=== PATIENT | female | born 1995 | race African-American/Black ===

== ENCOUNTER 2018-11-30 00:08 | Emergency (ER) | payer MEDICAID ==
[~2018-11-30] VITALS: Ht 160 cm; Wt 82.0 kg
[2018-11-30 00:19] VITALS: BP 111/69
== END 2018-11-30 02:30 | disposition left against medical advice (07) ==
LOC: ER 00:08
DX: Z53.21 Procedure and treatment not carried out due to patient leaving prior to being seen by health care provider (principal); F17.210 Nicotine dependence, cigarettes, uncomplicated

== ENCOUNTER 2019-06-17 03:37 | Emergency (ER) | payer MEDICAID ==
[~2019-06-17] VITALS: Ht 160 cm; Wt 89.0 kg
[2019-06-17 04:08] VITALS: BP 93/52
== END 2019-06-17 05:39 | disposition left against medical advice (07) ==
LOC: ER 03:37
DX: S09.90XA Unspecified injury of head, initial encounter (principal); Z53.21 Procedure and treatment not carried out due to patient leaving prior to being seen by health care provider; Y08.89XA Assault by other specified means, initial encounter; Y93.89 Activity, other specified; Y92.89 Other specified places as the place of occurrence of the external cause; Y99.8 Other external cause status

== ENCOUNTER 2019-07-24 13:24 | Emergency (ER) | payer MEDICAID ==
[~2019-07-24] VITALS: Ht 160 cm; Wt 65.0 kg
[2019-07-24] MEDS ORDERED: SODIUM CHLORIDE 0.9% 1,000 ML IV ONE (13:26)
[2019-07-24 14:19] LABS: BASOPHILS % 0.6 % (0.0-2.0); EOSINOPHILS % 1.7 % (0.0-5.0); HEMATOCRIT. 35.8 % (36.0-48.0); HEMOGLOBIN. 12.6 g/dL (12.0-16.0); LYMPHOCYTES % 33.6 % (20.0-50.0); MEAN CORPUSCULAR HEMOGLOBIN 33.9 pg (28.0-32.0); MEAN CORPUSCULAR VOLUME 96.3 fL (81.0-99.0); MEAN PLATELET VOLUME 8.6 fl (7.4-10.4); MONOCYTES % 6.2 % (2.0-8.0); NEUTROPHILS % 57.9 % (40.0-76.0); PLATELET 254 x1000/uL (130-400); RED BLOOD CELL COUNT 3.72 mill/uL (4.2-5.4); RED CELL DISTRIBUTION WIDTH 12.4 % (11.6-14.6)
[2019-07-24 14:27] LABS: CHLORIDE 109 mEq/L (98-107)
[2019-07-24 14:28] LABS: PROTHROMBIN TIME 10.7 sec (9.6-11.0)
[2019-07-24 14:31] LABS: ETHANOL BLOOD < 10 mg/dL; HCG SCREEN NEGATIVE
[2019-07-24 15:59] VITALS: BP 116/64
[2019-07-24] MEDS ORDERED: POTASSIUM CHLORIDE 20MEQ TABLET SR PO ONE (16:00)
== END 2019-07-24 16:24 | disposition left against medical advice (07) ==
LOC: ER 13:50
DX: S00.81XA Abrasion of other part of head, initial encounter (principal); G89.11 Acute pain due to trauma; M54.5 Low back pain; R56.9 Unspecified convulsions; J45.909 Unspecified asthma, uncomplicated; W18.30XA Fall on same level, unspecified, initial encounter; Y93.89 Activity, other specified; Y92.89 Other specified places as the place of occurrence of the external cause; Y99.8 Other external cause status
CPT/HCPCS: 36415; 70450; 80053; 80320; 84703; 85025; 85610; 85730; 93005; 99285; J7030; G0480

== ENCOUNTER 2020-03-19 13:33 | Emergency (ER) | payer MEDICAID ==
[~2020-03-19] VITALS: Ht 162.6 cm; Wt 88.0 kg
[2020-03-19 16:53] LABS: BASOPHILS % 0.4 % (0.0-2.0); EOSINOPHILS % 1.4 % (0.0-5.0); HEMATOCRIT. 27.3 % (36.0-48.0); HEMOGLOBIN. 9.6 g/dL (12.0-16.0); LYMPHOCYTES % 18.2 % (20.0-50.0); MEAN CORPUSCULAR HEMOGLOBIN 34.3 pg (28.0-32.0); MEAN CORPUSCULAR VOLUME 97.1 fL (81.0-99.0); MEAN PLATELET VOLUME 8.6 fl (7.4-10.4); MONOCYTES % 7.3 % (2.0-8.0); NEUTROPHILS % 72.7 % (40.0-76.0); PLATELET 230 x1000/uL (130-400); RED BLOOD CELL COUNT 2.81 mill/uL (4.2-5.4); RED CELL DISTRIBUTION WIDTH 13.7 % (11.6-14.6)
[2020-03-19 16:54] LABS: CHLORIDE 107 mEq/L (98-107)
[2020-03-19 17:18] LABS: B-HCG QUANTITATIVE 7300 mIU/mL (<3)
[2020-03-19 17:42] LABS: CLARITY URINE CLOUDY (CLEAR); COLOR URINE YELLOW (YELLOW); KETONES URINE NEGATIVE (NEGATIVE); LEUKOCYTE ESTERASE URINE NEGATIVE (NEGATIVE); NITRITE URINE NEGATIVE (NEGATIVE); OCCULT BLOOD URINE NEGATIVE (NEGATIVE); PROTEIN URINE NEGATIVE (NEGATIVE); SPECIFIC GRAVITY URINE 1.017 (1.005-1.030); UROBILINOGEN URINE 0.2 E.U./dL (0.2-1.0)
[2020-03-19 18:22] VITALS: BP 109/65
[2020-03-19 18:28] LABS: *AMPHETAMINES SCREEN URINE NEGATIVE (NEGATIVE); *BARBITURATES SCREEN URINE NEGATIVE (NEGATIVE); *COCAINE SCREEN URINE NEGATIVE (NEGATIVE); METHADONE URINE SCREEN NEGATIVE (NEGATIVE); PHENCYCLIDINE URINE SCREEN NEGATIVE (NEGATIVE)
[2020-03-19 18:31] LABS: *BENZODIAZEPINES SCREEN URINE NEGATIVE (NEGATIVE); OPIATES URINE SCREEN NEGATIVE (NEGATIVE)
[2020-03-19 18:38] LABS: CANNABINOID URINE SCREEN PRESUMTIVE POSITIVE (NEGATIVE)
== END 2020-03-19 18:16 | disposition home or self-care (01) ==
LOC: ER 13:33
DX: O26.892 Other specified pregnancy related conditions, second trimester (principal); R82.71 Bacteriuria; J45.909 Unspecified asthma, uncomplicated; Z3A.20 20 weeks gestation of pregnancy
CPT/HCPCS: 36415; 76805; 80053; 80305; 81003; 81025; 84702; 85025; 86850; 86900; 93005; 99285

== ENCOUNTER 2025-03-25 09:43 | Emergency (ER) | payer MEDICAID ==
[~2025-03-25] VITALS: Ht 162.6 cm; Wt 91.0 kg
[2025-03-25 09:58] VITALS: O2SAT 99
[2025-03-25] MEDS: IBUPROFEN 600MG TABLET PO ONE (11:46)
[2025-03-25 11:59] LABS: BASOPHILS % 0.6 % (0.0-2.0); EOSINOPHILS % 5.3 % (0.0-5.0); HEMATOCRIT. 36.9 % (36.0-48.0); HEMOGLOBIN. 12.5 g/dL (12.0-16.0); LYMPHOCYTES % 25.0 % (20.0-50.0); MONOCYTES % 8.2 % (2.0-8.0); NEUTROPHILS % 60.9 % (40.0-76.0); RED BLOOD CELL COUNT 3.95 mill/uL (4.2-5.4); RED CELL DISTRIBUTION WIDTH 13.5 % (11.6-14.6)
[2025-03-25 12:09] LABS: CREATININE 0.8 mg/dL (0.6-1.0); UREA NITROGEN BLOOD 8 mg/dL (9-23)
[2025-03-25 12:10] LABS: CLARITY URINE CLEAR (CLEAR); COLOR URINE YELLOW (YELLOW); GLUCOSE URINE NEGATIVE (NEGATIVE); PH URINE 6.0 (4.5-8.0); PROTEIN URINE NEGATIVE (NEGATIVE); SPECIFIC GRAVITY URINE 1.030 (1.005-1.030)
[2025-03-25 12:11] LABS: ASPARTATE AMINOTRANSFERASE 20 IU/L (<34); BILIRUBIN DIRECT < 0.1 mg/dL (<=3.0); BILIRUBIN TOTAL 0.4 mg/dL (0.1-1.0); PROTEIN TOTAL 7.3 g/dL (6.0-8.3)
[2025-03-25 12:11] LABS: KETONES URINE TRACE (NEGATIVE); LEUKOCYTE ESTERASE URINE NEGATIVE (NEGATIVE); NITRITE URINE NEGATIVE (NEGATIVE); OCCULT BLOOD URINE NEGATIVE (NEGATIVE); UROBILINOGEN URINE 1.0 E.U./dL (0.2-1.0)
[2025-03-25 12:17] LABS: HCG SCREEN NEGATIVE
[2025-03-25 12:27] LABS: PLATELET 272 x1000/uL (130-400)
[2025-03-25] MEDS ORDERED: IBUP-2030 MT (15:14)
[2025-03-25 15:22] VITALS: BP 125/75; PULSE 99; RESP 18; TEMP 36.8; O2SAT 95
[2025-03-28 06:08] LABS: CHLAMYDIA TRACHOMATIS NAA Negative (Negative); NEISSERIA GONORRHOEAE NAA Negative (Negative)
== END 2025-03-25 15:23 | disposition home or self-care (01) ==
LOC: ER 09:43
DX: N83.292 Other ovarian cyst, left side (principal); N20.0 Calculus of kidney; J45.909 Unspecified asthma, uncomplicated; R10.20 Pelvic and perineal pain unspecified side
CPT/HCPCS: 74176; 76830; 76856; 80048; 80076; 81003; 84703; 85025; 86592; 87491; 87591; 99284